=== PATIENT | male | born 1945 | race Caucasian/White ===

== ENCOUNTER 2016-12-18 08:26 | Observation (INO) | payer MEDICARE ==
[2016-12-18] MEDS ORDERED: Diazepam TAB(*) 5 MG ONE (09:30)
[2016-12-18] MEDS ORDERED: Clindamycin 900 MG IVPREMIX(* 900 MG/50 ML SDV IV ONE (10:00)
[2016-12-18] MEDS ORDERED: Lidocaine 1% INJ* 10 MG/ML 30 ML SDV ONE (10:22)
[2016-12-18] MEDS ORDERED: fentaNYL* 50 MCG/ML 2 ML VIAL (100 MCG VIAL) ONE (10:33)
[2016-12-18] MEDS ORDERED: Midazolam* 1 MG/ML 5 ML VIAL (5 MG) ONE (10:33)
[2016-12-18] MEDS ORDERED: Naloxone* 0.4 MG/ML 1 ML VIAL ONE (10:40)
[2016-12-18] MEDS ORDERED: Acetaminophen TAB* 325 MG PO PRN (11:38)
[2016-12-18] MEDS ORDERED: oxyCODONE/Acetamin 5/325 MG* TAB PO PRN (11:38)
[2016-12-18] MEDS ORDERED: Polyethylene Glycol 3350* 17 GM PACKET PO PRN (11:42)
--- NOTE | 2016-12-18 12:55 | RAD ---
Indication: Status post device implant. Pacemaker placement. Single frontal view of the chest performed at 1215 hours was reviewed. Comparison is made with previous exam dated February 03, 2016. No mediastinal shift is noted. Heart is of normal size and configuration. Lung russell appear clear. Pacemaker leads are in place. IMPRESSION: NO ACTIVE CARDIOPULMONARY DISEASE IS NOTED. PACEMAKER LEADS IN PLACE IN APPROPRIATE POSITION WITH NO PNEUMOTHORAX.
[2016-12-18] MEDS: Clindamycin CAP* 150 MG PO SCH ×2 (14:45→21:02)
[2016-12-18] MEDS ORDERED: Zolpidem TAB* 5 MG PO PRN (21:00)
--- NOTE | 2016-12-19 03:55 | OP ---
CC: Dr. Odonnell * DATE OF OPERATION: 12/18/16 - ROOM #450 DATE OF : 45 SURGEON: Franky Ulloa MD ANESTHESIA: Local anesthesia with conscious sedation. PRE-OP DIAGNOSES: 1. Bradycardia. 2. Atrial fibrillation. POST-OP DIAGNOSES: 1. Bradycardia. 2. Atrial fibrillation. OPERATIVE PROCEDURE: Dual-chamber pacemaker implantation. INDICATIONS: The patient is a 71-year-old gentleman with a history of paroxysmal atrial fibrillation, also a history of bradycardia. Permanent pacemaker was recommended for maximization of medical therapy. ESTIMATED BLOOD LOSS: Nil. COMPLICATIONS: None. DESCRIPTION OF PROCEDURE: The patient was brought to the operating room in a fasting state. Informed consent had been obtained prior to the procedure. All labs had been reviewed. The patient was placed supine on the procedure table. His left anterior pectoral area was prepped and draped in the usual fashion. 1 % lidocaine was used for local anesthesia. Under ultrasound guidance, the axillary vein was entered by a modified Seldinger technique and a guidewire was placed. A second guidewire was placed in the same technique. A 3-cm incision was made into the pectoral area and blunt dissection was carried down to the pectoral fascia. A small pocket was fashioned for the pacemaker. Over the first guidewire, a 7-Taiwanese sheath introducer was placed, through which a right ventricular lead was advanced to the RV apex. The right ventricular lead was a Medtronic, model 5076, serial number [id number] and had an R-wave sensitivity of 11, impedance of 972 ohms, threshold 0.3 V at 0.5 milliseconds. The ventricular lead was then sutured to the pectoral fascia using 0 silk. Over the second guidewire, a 7-Taiwanese sheath introducer was placed, through which a right atrial lead was advanced to a high rate atrium. The right atrial lead was a Medtronic, model 5076, serial number [id number]. It had a P-wave sensitivity of 3.1, impedance 682 ohms, threshold 0.5 V at 0.5 milliseconds. The atrial lead was then sutured to the pectoral fascia using 0 silk. The pocket was flushed with normal saline and a generator was attached appropriately to the atrial and ventricular lead. The generator was a MedWefunder , model A2DR01, serial number [id number]. The device was placed into the pocket. The surgical incision was closed in 3 layers. The subcutaneous tissue was closed with 2-0 and 3-0 absorbable suture. The skin was closed with suzy. The device was then tested via an external analyzer and noted to be functioning normally. The patient was returned to the holding area in stable condition. [id number]/[facility] #: [id number] [facility]
[2016-12-19 08:18] VITALS: BP 133/68
[2016-12-19] MEDS: Clindamycin CAP* 150 MG PO SCH (08:29)
[2016-12-19] MEDS ORDERED: Losartan TAB* 25 MG PO SCH (09:00)
[2016-12-19] MEDS ORDERED: Prenatal Vitamin TAB PO SCH (09:00)
--- NOTE | 2016-12-19 10:10 | RAD ---
HISTORY: Status post device implant COMPARISONS: December 18, 2016 VIEWS: 4: Frontal dual-energy and lateral views of the chest. FINDINGS: CARDIOMEDIASTINAL SILHOUETTE: The cardiomediastinal silhouette is normal. BERTIN: The bertin are normal. PLEURA: The costophrenic angles are sharp. No pleural abnormalities are noted. There is no appreciable pneumothorax LUNG PARENCHYMA: The lungs are clear. ABDOMEN: The upper abdomen is clear. There is no subphrenic gas. BONES AND SOFT TISSUES: Mild degenerative changes are noted OTHER: A left-sided pacemaker is noted. An implant oil and gas lease pumper is noted. IMPRESSION: NO ACTIVE CARDIOPULMONARY DISEASE.
--- NOTE | 2016-12-20 01:11 | DS ---
CC: Dr. Chandan Odonnell; Dr. Branham * DISCHARGE SUMMARY: DATE OF ADMISSION: 12/18/16 DATE OF DISCHARGE: 12/19/16 INDICATION FOR ADMISSION: Permanent pacemaker implantation. HISTORY OF PRESENT ILLNESS: The patient is a 71-year-old gentleman with a history of atrial fibrillation, history of bradycardia. Pacemaker implantation was recommended. Please see admission history and physical by Dr. Odonnell for details of his presentation. SUMMARY OF HOSPITAL COURSE: The patient underwent dual-chamber pacemaker implantation yesterday. He has a Medtronic Advisa DR. The patient was observed overnight. The patient had no problems. He had good pain control. He had no complaints overnight. This morning, the patient underwent a chest x- ray, which showed normal position of the pacemaker wires. Interrogation of his pacemaker device shows his normal function, it had a P wave sensitivity of 4; R wave sensitivity of 8; impedance, 456 ohms in the atrium, 684 ohms in the ventricle; pacing threshold, atrial threshold 0.5 volts at 0.4 milliseconds, ventricular threshold 0.5 volts at 0.4 milliseconds. The patient had no abnormal rhythms. The patient was ventricularly paced 93% of the time. DISPOSITION: The patient will be discharged home on his usual medications which include: 1. Multaq 400 mg twice a day. 2. Cialis as directed. 3. Xarelto 20 mg a day. 4. Losartan 25 mg a day. 5. Magnesium oxide 400 mg once a day. 6. Multivitamin a day. 7. MiraLAX. 8. Triamcinolone cream. 9. The patient will be sent home with clindamycin 150 mg 3 times a day for 3 days. FOLLOWUP: The patient will follow up with me on 12/22/16 for a wound check. [id number]/[facility] #: [id number] MTDD
== END 2016-12-19 12:24 | disposition home or self-care (01) ==
LOC: CHICATH 08:26 → MEDTELE 11:38
PROVIDERS: ADMIT Specialist; ATTEND Specialist
DX: I48.2 Chronic atrial fibrillation (principal); R00.1 Bradycardia, unspecified; I49.5 Sick sinus syndrome; Z79.899 Other long term (current) drug therapy; R42 Dizziness and giddiness; H53.8 Other visual disturbances; R53.83 Other fatigue; C91.10 Chronic lymphocytic leukemia of B-cell type not having achieved remission; I10 Essential (primary) hypertension; Z87.891 Personal history of nicotine dependence
CPT/HCPCS: 33208; 71010; 71020; 76937; 93005; 99156; 99157; A9270-GY; C1785; C1898; G0378; J2001; J2250; J2310; J3010

== ENCOUNTER 2017-08-19 07:21 | Emergency (ER) | payer MEDICARE ==
[2017-08-19 07:49] VITALS: BP 169/80
--- NOTE | 2017-08-19 08:16 | UC ---
General HPI - HPI Summary HPI Summary: Pt presents for a laceration to left thumb. Upon further hx pt states was in his garden cutting rhubarb. Pt states he was leaning forward - pt states " I don't know what happened but I fell out of the bed and rolled down the grass" Pt is unsure if he passed out, but does not remember the events. PT states since this time has been feeling dizziness. Pt states also mild nausea and photophobia since. Pt denies CP, SOB. No abd pain. No v/d. Pt states 3 days ago had episode of vision changes, "bright lights everywhere" that lasted 1 hour. Pt did not tell anyone of this episode. Pt with a h/o a fib. Pt s/p ablation approx 1 year ago. Pt had interrogation approx 1 month ago - states in a fib 20% time. Pt states has had brief dizzy spells before - but "not like this" Pt's medications reviewed this visit - History of Current Complaint Chief Complaint: UCDizziness Stated Complaint: LEFT HAND LACERATION Time Seen by Provider: 08/19/17 07:51 Hx Obtained From: Patient, Family/Atlassian Administrator - spouse Onset Severity: Mild Current Severity: Mild Pain Intensity: 4 - left thumb - Allergy/Home Medications Allergies/Adverse Reactions: Allergies Allergy/AdvReac Type Severity Reaction Status Date / Time amlodipine Allergy Rash Verified 08/19/17 07:30 gluten Allergy Unknown Verified 08/19/17 07:30 Reaction Details paroxetine Allergy Unknown Verified 08/19/17 07:30 Reaction Details Penicillins Allergy Unknown Verified 08/19/17 07:30 Reaction Details ranolazine [From Ranexa] Allergy Rash Verified 08/19/17 07:30 sertraline Allergy Unknown Verified 08/19/17 07:30 Reaction Details Sulfa (Sulfonamide Allergy Unknown Verified 08/19/17 07:30 Antibiotics) Reaction Details steri strips Allergy Rash Uncoded 08/28/16 10:08 Home Medications: Home Medications Cholecalciferol TAB* [Vitamin D TAB*] 2,000 units PO DAILY 08/19/17 [History Confirmed 08/19/17] Dronedarone TAB* [Multaq TAB*] 400 mg PO BID 08/19/17 [History Confirmed ] Losartan TAB* [Cozaar TAB*] 25 mg PO DAILY 08/19/17 [History Confirmed 08/19/17] Magnesium Oxide TAB* [MagOx 400 TAB*] 400 mg PO DAILY 08/19/17 [History Confirmed 08/19/17] Rivaroxaban TAB(*) [Xarelto 15 mg(*)] 15 mg PO DAILY 08/19/17 [History Confirmed 08/19/17] Vitamin THERAPEUTIC TAB* [Theragran TAB*] 1 tab PO DAILY 08/19/17 [History Confirmed 08/19/17] PMH/Surg Hx/FS Hx/Imm Hx Previously Healthy: Yes Cardiovascular History: Cardiac Disease, Pacemaker/ICD, Atrial Fibrillation - Surgical History Surgical History: Yes Surgery Procedure, Year, and Place: appy, bilat hernia repair, pylonidal cyst, back sx - Family History Known Family History: Positive: Cardiac Disease, Hypertension, Diabetes - Social History Occupation: Retired Lives: With Family Alcohol Use: Rare Substance Use Type: None Smoking Status (MU): Former Smoker When Did the Patient Quit Smoking/Using Tobacco: 1979 Review of Systems Skin: Other - laceration left thumb Eyes: Other - vision changes 3 days ago - resolved ENT: Negative Respiratory: Negative Cardiovascular: Other - dizziness, possible syncope Gastrointestinal: Negative Genitourinary: Negative Motor: Negative Neurovascular: Negative Musculoskeletal: Negative Neurological: Weakness, Other - dizziness Psychological: Negative All Other Systems Reviewed And Are Negative: No Physical Exam Triage Information Reviewed: Yes Appearance: No Pain Distress, Other: - poor historian -difficulty focusing on history intermittent closes eyes for dizziness Vital Signs: Initial Vital Signs Temp 97.7 F 08/19/17 07:38 Pulse 60 08/19/17 07:38 Resp 18 08/19/17 07:38 BP 169/80 08/19/17 07:38 Pulse Ox 100 08/19/17 07:38 Eye Exam: Normal Eyes: Positive: Conjunctiva Clear, Other: - no nystagmus ENT: Positive: Hearing grossly normal, Pharynx normal, TMs normal Neck exam: Normal Neck: Positive: Supple, Nontender, No Lymphadenopathy Respiratory Exam: Normal Respiratory: Positive: Chest non-tender, Lungs clear, Normal breath sounds, No respiratory distress, No accessory muscle use Cardiovascular Exam: Normal Cardiovascular: Positive: RRR, No Murmur, Pulses Normal, Other: - CBT < left thumb Abdominal Exam: Normal Abdomen Description: Positive: Nontender, No Organomegaly, Soft Musculoskeletal: Positive: Strength Intact Neurological: Positive: Other: - + gross sensation thumb + flex/ext mcp, ip Skin: Positive: Other - Ptw ith 2.5cm laceration medial aspect left thumb at mcp extending to web space slight ooze Diagnostics - EKG Cardiac Rate: NL - HR [address], T wave change prolonged UT interval Ectopy: None ST Segment: Normal Course/Dx - Course Course Of Treatment: Pt wtih laceration to left thumb - susptained by knife - injury occured when pt fell - possible syncopal episode. laceration bandaged - will require repair, bleeding controlled. Pt with cardiac hx, a fib. Pt unable to give clear history of fall, pt persistent dizziness and visiual changes. RKG NSR. Refer pt to ED for further evaluation and treatment. vSS. would like to drive - will discharge with recommendation. Spoke with Chantale Dao NP - accepting patient. pt comfotable and in agreement with plan. driving - recommend green chain puller, 911 with any changes or concerns - Differential Dx - Multi-Symptom Provider Diagnoses: dizziness. laceration Discharge - Sign-Out/Discharge Documenting (check all that apply): Discharge/Admit/Transfer - Discharge Plan Condition: Stable Disposition: HOME Patient Education Materials: Laceration (ED), Dizziness (ED) Referrals: Lucian Taylor MD [Primary Care Provider] - Additional Instructions: The doctor that evaluated you recommends you go directly to the emergency department for further evaluation. You have discussed this referral with the provider that evaluated you today and are in agreement to go the emergency department for evaluation. If you symptoms change or you have any concerns, green chain puller and call 911 for assistance - Billing Disposition and Condition Condition: STABLE Disposition: HOME
== END 2017-08-19 08:23 | disposition home or self-care (01) ==
LOC: UCCORT 07:21
DX: R42 Dizziness and giddiness (principal); S61.012A Laceration without foreign body of left thumb without damage to nail, initial encounter; W45.8XXA Other foreign body or object entering through skin, initial encounter; Y93.H2 Activity, gardening and landscaping; Y92.007 Garden or yard of unspecified non-institutional (private) residence as the place of occurrence of the external cause; Z95.811 Presence of heart assist device; I48.91 Unspecified atrial fibrillation; I51.9 Heart disease, unspecified; Z87.891 Personal history of nicotine dependence; Z88.0 Allergy status to penicillin; Z88.2 Allergy status to sulfonamides; Z88.8 Allergy status to other drugs, medicaments and biological substances; Z91.048 Other nonmedicinal substance allergy status; Z91.018 Allergy to other foods
CPT/HCPCS: 93005; 99212; G0463

== ENCOUNTER 2018-09-10 14:39 | Emergency (ER) | payer MEDICARE ==
--- OUTSIDE RECORDS SUMMARY | 2018-09-10 14:50 | XMS REPORT | Continuity of Care Document ---
:1945 External Reference #:[id number] Author Name Kiesha Elaina Care Team Providers Name Role Phone Lucian Taylor MD Primary Care Physician Unavailable Payers Date Identification Numbers Payment Provider Subscriber Effective: 2016 Policy Number: [id number] [employer] Farhat Ziegler [employer] Number: [id number] [address] PayID: [id number] [place] [address] Expires: 2016 Policy Number: [id number] Medicare Farhat Ziegler PayID: [id number] [address] [place] [address] Expires: 2012 Policy Number: [id number] [facility] Farhat Ziegler Group Number: [id number] [address] PayID: [id number] [place] [address] Expires: 2016 Policy Number: [id number] [employer] Farhat Ziegler PayID: [id number] [address] [place] [address] Problems Active Problems Provider Date Impacted cerumen Chase Corona M.D. Onset: 06/20/2012 Chronic lymphoid leukemia, disease Chase Corona M.D. Onset: 06/20/2012 Paroxysmal atrial fibrillation Layton Goode M.D. Onset: 02/07/2018 Syncope and collapse Layton Goode M.D. Onset: 02/07/2018 Headache Layton Goode M.D. Onset: 02/07/2018 Bradycardia, unspecified Layton Goode M.D. Onset: 02/07/2018 Iliotibial band friction syndrome Dominique Christian M.D. Onset: 06/14/2018 Arthroplasty of knee Dominique Christian M.D. Onset: 06/14/2018 Localized, primary osteoarthritis of the Dominique Christian M.D. 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 Hand Dominance Right-handed Tobacco Use Start: Unknown Former Cigarette Smoker End: Unknown Cigars Quit 45 Years Ago Pipe Quit 40 Years Ago Smokeless Tobacco Never Used Smokeless Tobacco ETOH Use Occasionally consumes alcohol Tobacco Use Start: Unknown Patient is a former 1980 QUIT End: Unknown smoker Recreational Drug Use Denies Drug Use Smoking Status Reviewed: 08/27/18 Patient is a former 1980 QUIT smoker Exercise Type/Frequency Exercises sporadically Allergies, Adverse Reactions, Alerts Active Allergies Reaction Severity Comments Date Penicillins 06/20/2012 Sulfa Antibiotics 06/20/2012 Paroxetine and paxil 09/22/2015 Sertraline 09/22/2015 Zoloft 09/22/2015 Ranexa Urticaria 09/22/2015 Rituximab Urticaria, Rigors 09/22/2015 Gluten 09/22/2015 Amlodipine Urticaria 09/22/2015 Steri-Strips 09/22/2015 Propafenone loss of smell 08/28/2016 Oxycodone 05/10/2018 Percocet 06/14/2018 Rituxan 06/14/2018 Medications Active Medications SIG Qnty Indications Ordering Provider Date Verapamil HCL ER use generic 90caps G43.809 Chandan Odonnell, 08/23/2017 120mg long-acting. DO FACC Caps ER 24HR take one tablet once daily Vitamin D 1 by mouth every Unknown 2000Unit day Tablets Xarelto 1 by mouth every 90tabs Chandan Odonnell, 20mg Tablets day DO FACC Losartan Potassium 1 by mouth every 90tabs Chandan Odonnell, 25mg day at night DO FACC Tablets Magnesium Oxide 1 by mouth every Unknown day 400(240Mg) mg Tablets Multi Vitamin Daily 1 tab by mouth Unknown daily Tablets Triamcinolone apply thin film Unknown Acetonide twice daily prn 0.1% Cream History Medications Anai Guerra 12/19/2016 - 150mg Capsules Karol Ulloa 12/19/2016 Clindamycin HCL 1 tab three times a 9caps Franky Guerra 12/19/2016 - 150mg day for 3 days Karol Ulloa 06/11/2017 Capsules (finished 12/22/13 Am) Multaq 1 by mouth twice a 180tabs Chandan SPina 08/28/2016 - 400mg Tablets day with meals DO [facility] 08/27/2018 Propafenone HCL ER take one tablet by 180caps Chandan SPina 03/09/2016 - 325mg Caps mouth twice daily DO Blas [facility] 08/28/2016 ER 12HR Propafenone HCL ER Take one tablet 60caps Chandan SPina 02/03/2016 - 225mg Caps twice daily Blas DO [facility] 03/22/2016 ER 12HR Miralax 17 gm every day Unknown - 3350NF Powder mixed w/ 8 oz 02/11/2018 water/juice as needed Glucosamine Chondroitin 1 by mouth every Unknown - 1500 Complex day 12/14/2016 1500Com Capsules Omeprazole 1 by mouth every Unknown - 20mg Capsules DR day for 30 days 12/17/2015 Probiotic daily Unknown - Tablets DR 08/29/2016 Fiber daily Unknown - 09/17/2016 Zyrtec Allergy 1 by mouth every Unknown - 10mg Tablets day 08/29/2016 Allergy Medicine Daily or prn Unknown - 08/22/2015 Amiodarone HCL Take 1/2 by mouth Unknown - 200mg Tablets every day 12/27/2015 Amlodipine Besylate 1 by mouth every Unknown - 2.5mg day 08/22/2015 Tablets Aspirin 1 by mouth every Unknown - 325mg Tablets DR day Unknown Flecainide Acetate 1 by mouth twice a Unknown - 50mg day 08/22/2015 Tablets Cialis one tab 30 minutes Unknown - 20mg Tablets prior to 06/11/2017 intercourse Flonase Allergy Relief spray 1 spray in Unknown - each nostril twice 08/22/2015 50mcg/Act Suspension daily Esomeprazole Magnesium 1 by mouth every Unknown - 40mg day 08/22/2015 Capsules Bupropion HCL ER (XL) 1 by mouth every Unknown - 150mg day 08/29/2016 Tablets ER 24HR Desoximetasone apply twice a day Unknown - 0.25% Cream on the rash twice a 08/22/2015 day x 10 days only Cyclophosphamide 500mg/m2 iv Unknown - 500mg 08/21/2015 Solution Rec Fludarabine Phosphate Unknown - 50mg 08/21/2015 Solution Rec Rituxan as directed Unknown - 10mg/ml Concentrate 08/21/2015 Aspirin 1 po qd 90tabs Unknown - 81mg Tablets 09/21/2015 Lisinopril 1 po qd 90tabs Unknown - 10mg Tablets 08/21/2015 Nexium 1 po qd 10caps Unknown - 40mg Capsules 08/21/2015 Medications Administered in Office Medication SIG Qnty Indications Ordering Provider Date Inj, Regadenoson, 0.1 MG Chandan Odonnell, DO FAC 03/06/2018 Injection Technetium TC 99M Chandan Odonnell, DO FAC 03/06/2018 Tetrofosmin, Per Unit Dose Up To 40 Millicuries Injection Vital Signs Date Vital Result Comment 08/27/2018 11:03am Height 70.5 inches 5'10.50" Weight 188.00 lb with shoes Heart Rate 70 /min BP Systolic Sitting 130 mmHg Lue reg cuff BP Diastolic Sitting 60 mmHg Lue reg cuff BP Systolic Standing 122 mmHg Lue reg cuff BP Diastolic Standing 62 mmHg Lue reg cuff Respiratory Rate 14 /min BMI (Body Mass Index) 26.6 kg/m2 06/14/2018 10:45am Height 70.5 inches 5'10.50" Weight 188.00 lb Heart Rate 72 /min BP Systolic 146 mmHg BP Diastolic 86 mmHg BMI (Body Mass Index) 26.6 kg/m2 05/10/2018 11:08am Height 70 inches 5'10" Weight 179.00 lb Heart Rate 76 /min BP Systolic Sitting 132 mmHg BP Diastolic Sitting 68 mmHg BMI (Body Mass Index) 25.7 kg/m2 02/12/2018 10:23am Height 70 inches 5'10" Weight 192.00 lb Heart Rate 74 /min w/ oximeter BP Systolic Sitting 125 mmHg LA reg cuff BP Diastolic Sitting 70 mmHg LA reg cuff BP Systolic Standing 115 mmHg LA reg cuff BP Diastolic Standing 80 mmHg LA reg cuff O2 % BldC Oximetry 97 % w/ oximeter BMI (Body Mass Index) 27.5 kg/m2 Ejection Fraction 60-65% 12/06/17 02/07/2018 11:17am Height 70 inches 5'10" Weight 192.00 lb Heart Rate 76 /min BP Systolic 140 mmHg BP Diastolic 84 mmHg Respiratory Rate 16 /min BMI (Body Mass Index) 27.5 kg/m2 11/26/2017 1:11pm Height 70 inches 5'10" Weight 190.00 lb Heart Rate 62 /min BP Systolic Sitting 114 mmHg Rue reg cuff BP Diastolic Sitting 66 mmHg Rue reg cuff BP Systolic Standing 124 mmHg Rue BP Diastolic Standing 80 mmHg Rue Respiratory Rate 16 /min BMI (Body Mass Index) 27.3 kg/m2 Ejection Fraction 60-65% as of 09/2015 echo 08/23/2017 3:00pm Height 70 inches 5'10" Weight 188.00 lb Heart Rate 64 /min BP Systolic Sitting 130 mmHg Lue LG Cuff BP Diastolic Sitting 50 mmHg Lue LG Cuff BP Systolic Standing 110 mmHg Lue LG Cuff BP Diastolic Standing 60 mmHg Lue LG Cuff Respiratory Rate 16 /min BMI (Body Mass Index) 27.0 kg/m2 Ejection Fraction 60-65% 09/29/2015 ECHO 06/12/2017 7:58am Height 70 inches 5'10" Weight 196.00 lb No shoes Heart Rate 70 /min BP Systolic Sitting 132 mmHg Lue reg cuff BP Diastolic Sitting 74 mmHg Lue reg cuff BP Systolic Standing 140 mmHg Lue reg cuff BP Diastolic Standing 78 mmHg Lue reg cuff Respiratory Rate 16 /min BMI (Body Mass Index) 28.1 kg/m2 Ejection Fraction 60-65% 09/29/2015-echo 01/25/2017 1:29pm Height 70 inches 5'10" Weight 194.00 lb with shoes Heart Rate 68 /min BP Systolic Sitting 134 mmHg Lue reg cuff BP Diastolic Sitting 74 mmHg Lue reg cuff BP Systolic Standing 136 mmHg Lue reg cuff BP Diastolic Standing 72 mmHg Lue reg cuff Respiratory Rate 16 /min BMI (Body Mass Index) 27.8 kg/m2 Ejection Fraction 60-65% 09/29/2015-echo 12/22/2016 10:19am Height 70 inches 5'10" Weight 194.00 lb with shoes Heart Rate 70 /min BP Systolic Sitting 128 mmHg Rue lrg cuff BP Diastolic Sitting 68 mmHg Rue lrg cuff BP Systolic Standing 132 mmHg Rue lrg cuff BP Diastolic Standing 74 mmHg Rue lrg cuff Respiratory Rate 16 /min BMI (Body Mass Index) 27.8 kg/m2 Ejection Fraction 60-65% 09/29/2015-echo 12/15/2016 12:49pm Height 70 inches 5'10" Weight 194.00 lb with shoes Heart Rate 40 /min BP Systolic Sitting 140 mmHg Lue reg cuff BP Diastolic Sitting 60 mmHg Lue reg cuff BP Systolic Standing 120 mmHg Lue reg cuff BP Diastolic Standing 52 mmHg Lue reg cuff Respiratory Rate 16 /min BMI (Body Mass Index) 27.8 kg/m2 09/18/2016 1:37pm Height 70 inches 5'10" Weight 186.00 lb with shoes Heart Rate 56 /min BP Systolic Sitting 108 mmHg Lue rg cuff BP Diastolic Sitting 60 mmHg Lue rg cuff BP Systolic Standing 100 mmHg Lue reg cuff BP Diastolic Standing 60 mmHg Lue reg cuff Respiratory Rate 6 /min BMI (Body Mass Index) 26.7 kg/m2 08/30/2016 1:08pm Heart Rate 62 /min BP Systolic Sitting 126 mmHg BP Diastolic Sitting 68 mmHg BP Systolic Standing 130 mmHg BP Diastolic Standing 70 mmHg Respiratory Rate 16 /min 03/22/2016 2:37pm Height 69 inches 5'9" Weight 194.00 lb w/ shoes Heart Rate 60 /min BP Systolic Sitting 126 mmHg Rue, reg cuff BP Diastolic Sitting 80 mmHg Rue, reg cuff BP Systolic Standing 116 mmHg Rue BP Diastolic Standing 76 mmHg Rue Respiratory Rate 16 /min BMI (Body Mass Index) 28.6 kg/m2 Ejection Fraction 60-65% as of 09/29/15 echo 02/03/2016 12:16pm Height 69 inches 5'9" Heart Rate 92 /min BP Systolic Sitting 160 mmHg BP Diastolic Sitting 90 mmHg BP Systolic Standing 128 mmHg BP Diastolic Standing 80 mmHg Respiratory Rate 18 /min 01/27/2016 1:40pm Height 69 inches 5'9" Heart Rate 60 /min BP Systolic Sitting 142 mmHg Rue reg cuff BP Diastolic Sitting 68 mmHg Rue reg cuff BP Systolic Standing 150 mmHg Rue reg cuff BP Diastolic Standing 70 mmHg Rue reg cuff Respiratory Rate 16 /min Ejection Fraction 60-65% echo 09/29/15 12/27/2015 1:21pm Height 69 inches 5'9" Weight 190.00 lb no shoes Heart Rate 60 /min BP Systolic Sitting 144 mmHg Ra reg cuff BP Diastolic Sitting 70 mmHg Ra reg cuff BP Systolic Standing 150 mmHg Ra reg cuff BP Diastolic Standing 70 mmHg Ra reg cuff Respiratory Rate 17 /min BMI (Body Mass Index) 28.1 kg/m2 Ejection Fraction 60-65% 09/29/15 11/23/2015 8:00am Height 69 inches 5'9" Weight 191.00 lb no shoes Heart Rate 50 /min BP Systolic Sitting 128 mmHg LA reg cuff BP Diastolic Sitting 68 mmHg LA reg cuff BP Systolic Standing 132 mmHg LA reg cuff BP Diastolic Standing 72 mmHg LA reg cuff Respiratory Rate 16 /min BMI (Body Mass Index) 28.2 kg/m2 Ejection Fraction 60-65% 09/29/2015 09/22/2015 2:47pm Height 69 inches 5'9" Weight 188.00 lb w/o shoes Heart Rate 48 /min reg BP Systolic 154 mmHg Rue, reg cuff BP Diastolic 86 mmHg Rue, reg cuff BP Systolic Sitting 154 mmHg Lue, reg cuff BP Diastolic Sitting 84 mmHg Lue, reg cuff BP Systolic Standing 150 mmHg Lue BP Diastolic Standing 90 mmHg Lue Respiratory Rate 16 /min O2 % BldC Oximetry 98 % on Ra BMI (Body Mass Index) 27.8 kg/m2 06/20/2012 10:34am Weight 195.00 lb Heart Rate 88 /min BP Systolic Sitting 128 mmHg BP Diastolic Sitting 86 mmHg Results Test Date Facility Test Result H/L Range Note Laboratory test 08/28/2016 [facility] Magnesium 2.3 mg/dL N 1.9-2.7 finding [address] [place] [address] [phone] CBC Auto Diff 08/28/2016 [facility] White Blood 6.0 10^3/uL N 3.5-10.[address] [place] [address] [phone] Red Blood Count 4.83 10^6/uL N 4.0-5.4 Hemoglobin 16.1 g/dL N 14.0-18.0 Hematocrit 47 % N 42-52 Mean Corpuscular Volume 97 fL High 80-94 Mean Corpuscular Hemoglobin 33 pg High 27-31 Mean Corpuscular HGB Conc 34 g/dL N 31-36 Red Cell Distribution Width 13 % N 10.5-15 Platelet Count 202 10^3/uL N 150-450 Mean Platelet Volume 8 um3 N 7.4-10.4 Abs Neutrophils 3.1 10^3/uL N 1.5-7.7 Abs Lymphocytes 2.0 10^3/uL N 1.0-4.8 Abs Monocytes 0.8 10^3/uL N 0-0.8 Abs Eosinophils 0.1 10^3/uL N 0-0.6 Abs Basophils 0.1 10^3/uL N 0-0.2 Abs Nucleated RBC 0 10^3/uL N Granulocyte % 51.4 % N 38-83 Lymphocyte % 33.2 % N 25-47 Monocyte % 12.9 % High 1-9 Eosinophil % 1.5 % N 0-6 Basophil % 1.0 % N 0-2 Nucleated Red Blood Cells % 0.1 N Comp Metabolic Panel 08/28/2016 [facility] Sodium 137 mmol/L N 133-[address] [place] [address] [phone] Potassium 4.4 mmol/L N 3.5-5.0 Chloride 105 mmol/L N 101-111 Co2 Carbon Dioxide 25 mmol/L N 22-32 Anion Gap 7 mmol/L N 2-11 Glucose 100 mg/dL N 70-100 Blood Urea Nitrogen 16 mg/dL N 6-24 Creatinine 0.98 mg/dL N 0.67-1.17 BUN/Creatinine Ratio 16.3 N 8-20 Calcium 9.5 mg/dL N 8.6-10.3 Total Protein 7.7 g/dL N 6.4-8.9 Albumin 4.4 g/dL N 3.2-5.2 Globulin 3.3 g/dL N 2-4 Albumin/Globulin Ratio 1.3 N 1-3 Total Bilirubin 0.80 mg/dL N 0.2-1.0 Alkaline Phosphatase 64 U/L N 34-104 Alt 17 U/L N 7-52 Ast 24 U/L N 13-39 Egfr Non- 75.4 N >60 Egfr 97.0 N >60 1 1 Because ethnic data is not always readily available, this report includes an eGFR for both -Americans and non- Americans. The National Kidney Disease Education Program (NKDEP) does not endorse the use of the MDRD equation for patients that are not between the ages of 18 and 70, are , have extremes of body size, muscle mass, or nutritional status, or are non- or non-. According to the National Kidney Foundation, irrespective of diagnosis, the stage of the disease is based on the level of kidney function: Stage Description GFR(mL/min/1.73 m(2)) 1 Kidney damage with normal or decreased GFR 90 2 Kidney damage with mild decrease in GFR 60-89 3 Moderate decrease in GFR 30-59 4 Severe decrease in GFR 15-29 5 Kidney failure <15 (or dialysis) Procedures Date Code Description Status 08/27/2018 34223 Pace Maker Eval W/Iterative Adjment Dual Lead Completed 08/27/2018 93787 EKG Tracing & Interpretation Completed 03/06/2018 61613 Stress Test Completed 03/06/2018 04532 Myocardial Perfusion Imaging Tomographic (Spect) Multiple Completed Studies 02/12/2018 49841 Pace Maker Eval W/Iterative Adjment Dual Lead Completed 02/12/2018 49802 Pace Maker Eval W/Iterative Adjment Dual Lead Completed 12/06/2017 17855 ECHO Transthoracic, Real-Time 2D With Doppler And Color Completed Flow 12/06/2017 13919 ECHO Transthoracic, Real-Time 2D With Doppler And Color Completed Flow 11/26/2017 13444 EKG Tracing & Interpretation Completed 08/23/2017 85392 EKG Tracing & Interpretation Completed 08/08/2017 35150 Pace Maker Eval W/Iterative Adjment Dual Lead Completed 08/08/2017 17580 Pace Maker Eval W/Iterative Adjment Dual Lead Completed 06/12/2017 91896 EKG Tracing & Interpretation Completed 03/02/2017 19559 Implantable Cardio System Loop Recorder Sys Remota Data Completed Acquistio 03/02/2017 71872 Interrogation Dev Loop Recorder Incl Physician Completed Analysis,Rev,Repor 01/30/2017 19464 Implantable Cardio System Loop Recorder Sys Remota Data Completed Acquistio 01/30/2017 30057 Interrogation Dev Loop Recorder Incl Physician Completed Analysis,Rev,Repor 01/16/2017 71052 Pace Maker Eval W/Iterative Adjment Dual Lead Completed 01/16/2017 08186 Pace Maker Eval W/Iterative Adjment Dual Lead Completed 12/30/2016 72016 Implantable Cardio System Loop Recorder Sys Remota Data Completed Acquistio 12/30/2016 31622 Interrogation Dev Loop Recorder Incl Physician Completed Analysis,Rev,Repor 12/19/2016 38858 Pace Maker Eval W/Iterative Adjment Dual Lead Completed 12/18/2016 79167 Moderate Sedation Services; Same Phys Each Additional 15 Completed Mins 12/18/2016 10707 Moderate Sedation Services; Same Phys Intl 15 Mins; PT >=5 Completed Years 12/18/2016 59286 Perm Pacemaker Av Sequential Atrial And Ventricular Completed 12/15/2016 27107 EKG Tracing & Interpretation Completed 11/29/2016 10953 Interrogation Dev Loop Recorder Incl Physician Completed Analysis,Rev,Repor 11/29/2016 20867 Implantable Cardio System Loop Recorder Sys Remota Data Completed Acquistio 10/29/2016 42185 Implantable Cardio System Loop Recorder Sys Remota Data Completed Acquistio 10/29/2016 97456 Interrogation Dev Loop Recorder Incl Physician Completed Analysis,Rev,Repor 09/28/2016 22055 Implantable Cardio System Loop Recorder Sys Remota Data Completed Acquistio 09/28/2016 69246 Interrogation Dev Loop Recorder Incl Physician Completed Analysis,Rev,Repor 09/18/2016 27289 EKG Tracing & Interpretation Completed 08/30/2016 69076 EKG Tracing & Interpretation Completed 08/28/2016 48388 Cardioversion Completed 08/28/2016 79705 EKG, Interpretation Only Completed 08/28/2016 26748 Interrogation Dev Loop Recorder Incl Physician Completed Analysis,Rev,Repor 08/28/2016 31003 Implantable Cardio System Loop Recorder Sys Remota Data Completed Acquistio 07/28/2016 25957 Implantable Cardio System Loop Recorder Sys Remota Data Completed Acquistio 07/28/2016 73391 Interrogation Dev Loop Recorder Incl Physician Completed Analysis,Rev,Repor 06/27/2016 40886 Implantable Cardio System Loop Recorder Sys Remota Data Completed Acquistio 06/27/2016 19218 Interrogation Dev Loop Recorder Incl Physician Completed Analysis,Rev,Repor 05/27/2016 18027 Implantable Cardio System Loop Recorder Sys Remota Data Completed Acquistio 05/27/2016 41731 Interrogation Dev Loop Recorder Incl Physician Completed Analysis,Rev,Repor 04/26/2016 55223 Implantable Cardio System Loop Recorder Sys Remota Data Completed Acquistio 04/26/2016 40839 Interrogation Dev Loop Recorder Incl Physician Completed Analysis,Rev,Repor 03/26/2016 51475 Implantable Cardio System Loop Recorder Sys Remota Data Completed Acquistio 03/26/2016 30901 Interrogation Dev Loop Recorder Incl Physician Completed Analysis,Rev,Repor 03/22/2016 71321 EKG Tracing & Interpretation Completed 02/24/2016 81733 Implantable Cardio System Loop Recorder Sys Remota Data Completed Acquistio 02/24/2016 44335 Interrogation Dev Loop Recorder Incl Physician Completed Analysis,Rev,Repor 02/04/2016 58146 Cardioversion Completed 02/04/2016 80227 EKG, Interpretation Only Completed 02/03/2016 76394 EKG Tracing & Interpretation Completed 01/27/2016 26020 EKG Tracing & Interpretation Completed 01/24/2016 02854 Implantable Cardio System Loop Recorder Sys Remota Data Completed Acquistio 01/24/2016 31962 Interrogation Dev Loop Recorder Incl Physician Completed Analysis,Rev,Repor 12/27/2015 99657 EKG Tracing & Interpretation Completed 12/24/2015 30238 Implantable Cardio System Loop Recorder Sys Remota Data Completed Acquistio 12/24/2015 00927 Interrogation Dev Loop Recorder Incl Physician Completed Analysis,Rev,Repor 11/23/2015 76345 EKG Tracing & Interpretation Completed 11/23/2015 69328 Interrogation Dev Loop Recorder Incl Physician Completed Analysis,Rev,Repor 11/23/2015 20439 Implantable Cardio System Loop Recorder Sys Remota Data Completed Acquistio 10/23/2015 65780 Implantable Cardio System Loop Recorder Sys Remota Data Completed Acquistio 10/23/2015 12981 Interrogation Dev Loop Recorder Incl Physician Completed Analysis,Rev,Repor 09/29/2015 88811 ECHO Transthoracic, Real-Time 2D With Doppler And Color Completed Flow 09/22/2015 66183 EKG Tracing & Interpretation Completed 06/20/2012 44567 Binocular Microscopy Completed 06/20/2012 97284 Remove Impacted Cerumen Completed Encounters Type Date Location Provider Dx Diagnosis Office Visit 06/14/2018 Orth[facility] Dominique Christian, M25.551 Pain in right hip 10:00a Services Of [facility] M16.11 Unilateral primary osteoarthritis, right hip M25.561 Pain in right knee Z96.651 Presence of right artificial knee joint M76.31 Iliotibial band syndrome, right leg Office Visit 05/10/2018 [place] R51 Headache 11:15a Neurologic Karol Goode [facility] Office Visit 02/12/2018 [place] Chandan Odonnell, Z01.810 Encounter for 10:40a Cardiology Of [facility] preprocedural [facility] cardiovascular examination R07.9 Chest pain, unspecified I48.0 Paroxysmal atrial fibrillation I48.3 Typical atrial flutter I10 Essential (primary) hypertension 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 I48.0 Paroxysmal atrial Of Generator Technician Odonnell, DO fibrillation FACC Z95.0 Presence of cardiac pacemaker Office Visit 01/25/2017 2:00p [facility] Chandan S. I48.0 Paroxysmal atrial Of Generator Technician Odonnell, DO fibrillation FACC I49.5 Sick sinus syndrome Z95.0 Presence of cardiac pacemaker I10 Essential (primary) hypertension Office Visit 12/15/2016 1:00p [facility] Chandan S. I48.0 Paroxysmal atrial Of Generator Technician Odonnell, DO fibrillation FACC R00.1 Bradycardia, unspecified I49.5 Sick sinus syndrome Office Visit 09/18/2016 2:00p [facility] Chandan S. 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 I48.0 Paroxysmal atrial Of Generator Technician Odonnell, DO fibrillation FACC R55 Syncope and collapse I10 Essential (primary) hypertension Office Visit 11/23/2015 8:20a [facility] Chandan S. I48.0 Paroxysmal atrial Of Generator Technician Odonnell, DO fibrillation FACC I10 Essential (primary) hypertension R55 Syncope and collapse Office Visit 09/22/2015 3:00p [facility] Chandan S. I48.0 Paroxysmal atrial Of Generator Technician Odonnell, DO fibrillation FACC I10 Essential (primary) hypertension R55 Syncope and collapse Office Visit 06/20/2012 10:45a ENT Services Of Chase Corona, 380.4 Impacted C.M.A. 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 Office Visit 06/03/2008 2:00p Neurosurgery Barrie Rose 721.3 [facility] AT [facility]ang Lumbar W/O Jovanni Myelopathy Plan of Treatment Future Appointment(s):02/26/2019 9:00 am - [facility] Pacer Schedule at [facility]08/27/2018 - Chandan Odonnell, DO [id number] Paroxysmal atrial fibrillationComments:Stop taking multaqWe will see if your atrial fibrillation returns with high frequency.If we need to,we can restart itFollow up:1 [id number] Presence of cardiac [id number] Sick sinus [id number] Essential ( primary) [id number] Unspecified atrial flutter
[2018-09-10 15:00] VITALS: BP 148/62
--- NOTE | 2018-09-10 15:14 | UC ---
Throat Pain/Nasal Shiraz HPI - HPI Summary HPI Summary: 73-year-old male 73-year-old male comes in with a chief complaint of frontal sinus pressure nasal drainage sore throat and feeling unwell. This all started 2 days ago. Patient reports he get sinusitis about twice a year and this is what it feels like. No cough or chest congestion. No fevers measured. Patient is immunocompromised. He has CLL. He does get infusions for the CLL. - History of Current Complaint Chief Complaint: UCGeneralIllness Stated Complaint: SINUSES Time Seen by Provider: 09/10/18 14:55 Pain Intensity: 6 - Allergies/Home Medications Allergies/Adverse Reactions: Allergies Allergy/AdvReac Type Severity Reaction Status Date / Time amlodipine Allergy Rash Verified 09/10/18 15:00 gluten Allergy Unknown Verified 09/10/18 15:00 Reaction Details paroxetine Allergy Unknown Verified 09/10/18 15:00 Reaction Details Penicillins Allergy Unknown Verified 09/10/18 15:00 Reaction Details ranolazine [From Ranexa] Allergy Rash Verified 09/10/18 15:00 sertraline Allergy Unknown Verified 09/10/18 15:00 Reaction Details Sulfa (Sulfonamide Allergy Unknown Verified 09/10/18 15:00 Antibiotics) Reaction Details steri strips Allergy Rash Uncoded 09/10/18 15:00 Home Medications: Home Medications Verapamil TAB* [Calan TAB*] 120 mg PO DAILY 09/10/18 [History Confirmed 09/10/18 ] PMH/Surg Hx/FS Hx/Imm Hx Previously Healthy: Yes - CLL Cardiovascular History: Hypertension, Pacemaker/ICD - Surgical History Surgical History: Yes Surgery Procedure, Year, and Place: appy, bilat hernia repair, pylonidal cyst, back sx, cardiac ablation, pacemaker, with loop recorder, right knee - Family History Known Family History: Positive: Cardiac Disease, Hypertension, Diabetes - Social History Alcohol Use: Rare Substance Use Type: None Smoking Status (MU): Former Smoker When Did the Patient Quit Smoking/Using Tobacco: 1979 Review of Systems All Other Systems Reviewed And Are Negative: Yes Constitutional: Positive: Negative Skin: Positive: Negative Eyes: Positive: Negative ENT: Positive: Sore Throat, Nasal Discharge, Sinus Congestion, Sinus Pain/ Tenderness Respiratory: Positive: Negative Cardiovascular: Positive: Negative Gastrointestinal: Positive: Negative Motor: Positive: Negative Neurovascular: Positive: Negative Musculoskeletal: Positive: Negative Neurological: Positive: Negative Is Patient Immunocompromised?: Yes - CLL Physical Exam Triage Information Reviewed: Yes Appearance: Well-Appearing, No Pain Distress, Well-Nourished Vital Signs: Initial Vital Signs Temp 99.2 F 09/10/18 14:57 Pulse 69 09/10/18 14:57 Resp 16 09/10/18 14:57 BP 148/62 09/10/18 14:57 Pulse Ox 99 09/10/18 14:57 Vital Signs Reviewed: Yes Eye Exam: Normal Eyes: Positive: Conjunctiva Clear ENT: Positive: Pharyngeal erythema, Nasal congestion, Nasal drainage, TMs normal Neck: Positive: Supple Respiratory: Positive: Lungs clear, Normal breath sounds, No respiratory distress Cardiovascular: Positive: RRR Musculoskeletal Exam: Normal Musculoskeletal: Positive: Strength Intact, ROM Intact Neurological Exam: Normal Neurological: Positive: Alert, Muscle Tone Normal Psychological Exam: Normal Psychological: Positive: Age Appropriate Behavior Skin Exam: Normal Throat Pain/Nasal Course/Dx - Course Course Of Treatment: DUE TO PATIENT BEING IMMUNOCOMPROMISED, WILL RX ABX F/U WITH HIS ONCOLOGIST. REEVAL SOONER IF WORSE. - Differential Dx/Diagnosis Provider Diagnosis: Sinusitis Discharge - Sign-Out/Discharge Documenting (check all that apply): Patient Departure All imaging exams completed and their final reports reviewed: No Studies - Discharge Plan Condition: Stable Disposition: HOME Prescriptions: DOXYcycline CAP(*) [DOXYcycline 100MG CAP(*)] 100 mg PO BID #20 cap Patient Education Materials: Sinusitis (ED) Referrals: Lucian Taylor MD [Primary Care Provider] - Additional Instructions: FOLLOW UP WITH YOUR ONCOLOGIST IF NOT COMPLETELY IMPROVED. GET RECHECKED SOONER IF YOUR CONDITION WORSENS OR ANY QUESTIONS OR CONCERNS. - Billing Disposition and Condition Condition: STABLE Disposition: Home
== END 2018-09-10 15:22 | disposition home or self-care (01) ==
LOC: UCCORT 14:39
DX: J01.90 Acute sinusitis, unspecified (principal); J02.9 Acute pharyngitis, unspecified; I10 Essential (primary) hypertension; Z91.02 Food additives allergy status; Z88.0 Allergy status to penicillin; Z88.2 Allergy status to sulfonamides; Z88.8 Allergy status to other drugs, medicaments and biological substances; Z91.048 Other nonmedicinal substance allergy status; Z95.0 Presence of cardiac pacemaker; Z87.891 Personal history of nicotine dependence
CPT/HCPCS: 99212; G0463